=== PATIENT | female | born 1970 | race Asian ===

== ENCOUNTER 2017-06-26 09:40 | Day surgery (SDC) | payer OTHER ==
[~2017-06-26] VITALS: Ht 149.9 cm; Wt 38.1 kg
--- NOTE | ~2017-06-26 | S ---
[facility] [place] [address] SURGICAL PATH RPT PROCEDURE Name: ARIANNE NICOLE Amber Room #: [facility]P [facility]#: [id number] Admission: 06/26/17 Date of : 66 Discharge: 06/26/17 Report #: [id number] Path Case #: [id number] PATHOLOGY REPORT COLLECTION DATE: 06/26/2017 RECEIVED DATE: 06/26/2017 SUBMITTING PHYS: Dr. Bull Chacon, OTHER PHYS: Dr. Charline Jean SPECIMEN(S) RECEIVED: A.Appendix * * * * * * * * * * * * FINAL DIAGNOSIS: A. Appendix: - Acute appendicitis. COMMENT: This case is co-reviewed by Dr. Nell Ornelas. PATHOLOGIST: Huan Flowers M.D. REPORT ELECTRONICALLY SIGNED BY: Huan Flowers M.D. DATE/TIME: 07/02/2017 08:08 * * * * * * * * * * * * GROSS PATHOLOGY: Received in formalin labeled "Arianne Nicole and appendix," is an appendix measuring 4.5 cm in length and up to 0.7 cm in diameter with a minimal amount of attached mesoappendix. The proximal resection margin is closed by linear staple line 2.0 cm in length and up to 0.2 cm in width (inked black) The serosal surface is nassar-brown. Sectioning reveals dilated 0.6 cm lumen filled with yellow-nassar friable material and a wall that measure up to 0.2 cm thick. No discrete fecalith or masses identified. [employer] Supervisor sections are submitted in cassette A1. (SWS; 06/26/2017) After initial microscopic examination, the remainder of the appendix is submitted in cassettes A2 and A3. (CAA; 06/30/2017) CLINICAL HISTORY: Recurrent appendicitis INITIAL CPT CODE(S): A; [address] [facility] [place] [address] SURGICAL PATH RPT PROCEDURE Name: ARIANNE NICOLE Room #: [facility]#: [id number] Admission: 06/26/17 Date of : 66 Discharge: 06/26/17 Report #: [id number] Path Case #: [id number] Professional services performed by [facility] at [facility] [address] [facility] , [place] [address] Technical services performed by [facility] at [address] [place] [address], [facility] [address] [address]. [facility] [address] [place] [address] PHONE: [phone] DIRECTOR: Jason Riggins M.D. * * * END OF REPORT * * *
[~2017-06-26 09:40] MED LIST: AUGMENTIN 875-1 EACH PO; CALCIUM 500 +1 EAC5 PO; CENTRUM SILVER1 EAC4 PO; HYDROCODON-ACE1 EAC8 PO; LEVOTHYROXIN0.088 MG PO
[2017-06-26 10:54] VITALS: BP 111/68
[2017-06-26] MEDS ORDERED: MIRALAX17 GM PO (13:23)
[2017-06-26] MEDS ORDERED: HYDROCODONE-AP1 EAC6 PO (13:23)
[2017-06-26] MEDS ORDERED: ONDANSETRON HCL4 M2 PO (13:23)
[2017-06-26 13:50] VITALS: BP 111/68
== END 2017-06-26 18:14 | disposition home or self-care (01) ==
LOC: OR 09:40 → TBA 09:45 → OR 18:14
DX: K36 Other appendicitis (principal); Z98.890 Other specified postprocedural states; Z79.891 Long term (current) use of opiate analgesic
CPT/HCPCS: 50010; 50101; 50249; 50411; 50455; 50555; 50558; 50739; 50740; 50962; 51975; 52265; 53307; 53310; 54022; 54118; 56462; 56525; 56526; 62110; 62900; 70005